=== PATIENT | male | born 1940 | race Caucasian/White ===

== ENCOUNTER → 2022-03-26 | Outpatient (CLI) | payer MEDICARE, OTHER | END | disposition short-term general hospital (02) | LOC: EMS 13:36 | DX: R42 Dizziness and giddiness (principal); R53.1 Weakness; R07.9 Chest pain, unspecified; M54.2 Cervicalgia; R00.1 Bradycardia, unspecified | CPT/HCPCS: A0425; A0429; A0888 ==